=== PATIENT | male | born 1985 | race Caucasian/White ===

== ENCOUNTER 2018-05-04 01:42 | Emergency (ER) | payer OTHER ==
[2018-05-04] MEDS ORDERED: NS 1,000 ML IV ONE (01:44)
--- NOTE | 2018-05-04 01:49 | EDPHY ---
H & P Time Seen by Provider: 05/04/18 01:45 HPI/ROS: HPI CHIEF COMPLAINT: Combative agitated behavior, requiring spit mask and 4 point restraints. HISTORY OF PRESENT ILLNESS: 33-year-old male, Eyal Welsh, presents emergency room intoxicated with alcohol and admits to using cocaine. He arrives to the emergency room by EMS in 4 point restraints with a spit mask on. They found him lying on the sidewalk he does have abrasions over his face. The patient does not recall what happened. When EMS made contact him and police he became agitated combative. They had a placement 4 point restraints upon arrival in a spit mask. Upon arrival he is in ER room 6 he will not give us his name however he states he drank a large amount of alcohol this evening and did cocaine. He is out of 4 point restraints, upon arrival. Past Medical History: Unknown medical history Past Surgical History: Unknown surgical history Social History: Drug intoxication, alcohol intoxication cocaine. Family History: Unknown ROS REVIEW OF SYSTEMS: Limited due to intoxication Exam Constitutional intoxicated, smells of alcohol, triage nursing summary reviewed , vital signs reviewed, awake/alert. Eyes normal conjunctivae and sclera, EOMI, PERRLA. HENT head and neck abrasions across the face and nose. Otherwise no signs of acute neck or head trauma. moist mucus membranes, no epistaxis, neck supple/ no meningismus, no raccoon eyes. Respiratory clear to auscultation bilaterally, normal breath sounds, no respiratory distress, no wheezing. Cardiovascular rate normal, regular rhythm, no murmur, no edema, distal pulses normal. Gastrointestinal soft, non-tender, no rebound, no guarding, normal bowel sounds, no distension, no pulsatile mass. Genitourinary no CVA tenderness. Musculoskeletal no midline vertebral tenderness, full range of motion, no calf swelling, no tenderness of extremities, no meningismus, good pulses, neurovascularly intact. Skin abrasions across the face and nose. Neurologic agitated, aggressive, intoxicated. Differential Diagnosis: Includes but is not limited to in a particular order: Drug intoxication, cocaine intoxication, alcohol intoxication, aggressive combative behavior, intracranial bleed, skull fracture, facial fracture, cervical spine fracture. Medical Decision Making: Plan for this patient IV establishment fluid bolus, cardiac technologist, pulse ox, CT scan head and neck for trauma. Check drug screen serum alcohol level and electrolytes. Re-evaluation: CT scan head without contrast and CT cervical spine without contrast negative for acute traumatic injury called to me by Dr. Stratton. Serum alcohol 426 at 2:37 a.m.. cocaine positive on drug screen. 0615: Patient up ambulatory. Clinically sober stable gait. Was positive for cocaine and alcohol level 426. Now 615 in the morning doing much better. Ambulatory to the bathroom no complaints. Plan for discharge to the [facility] Source: Patient, EMS Constitutional: Initial Vital Signs Temperature (C) 36.6 C 05/04/18 01:42 Heart Rate 67 05/04/18 01:42 Respiratory Rate 16 05/04/18 01:42 Blood Pressure 116/95 H 05/04/18 01:42 O2 Sat (%) 92 05/04/18 01:42 O2 Delivery Mode Room Air Allergies/Adverse Reactions: Unable to Assess Allergy (Unverified 05/04/18 02:16) Home Medications: Medication Instructions Recorded Unobtainable 05/04/18 Medical Decision Making - Data Points Laboratory Results: Laboratory Results 05/04/18 01:45 05/04/18 01:45 05/04/18 05/04/18 05/04/18 02:16 01:45 01:45 WBC 12.48 10^3/uL H 10^3/uL (3.80-9.50) RBC 4.24 10^6/uL L 10^6/uL (4.40-6.38) Hgb 14.7 g/dL g/dL (13.7-17.5) Hct 43.8 % % (40.0-51.0) MCV 103.3 fL H fL (81.5-99.8) MCH 34.7 pg H pg (27.9-34.1) MCHC 33.6 g/dL g/dL (32.4-36.7) RDW 12.8 % % (11.5-15.2) Plt Count 258 10^3/uL 10^3/uL (150-400) MPV 8.7 fL fL (8.7-11.7) Neut % (Auto) 50.9 % % (39.3-74.2) Lymph % (Auto) 34.8 % % (15.0-45.0) [place] % (Auto) 10.3 % % (4.5-13.0) Eos % (Auto) 2.8 % % (0.6-7.6) Baso % (Auto) 0.7 % % (0.3-1.7) Nucleat RBC Rel Count 0.0 % % (0.0-0.2) Absolute Neuts (auto) 6.36 10^3/uL 10^3/uL (1.70-6.50) Absolute Lymphs (auto) 4.34 10^3/uL H 10^3/uL (1.00-3.00) Absolute Monos (auto) 1.28 10^3/uL H 10^3/uL (0.30-0.80) Absolute Eos (auto) 0.35 10^3/uL 10^3/uL (0.03-0.40) Absolute Basos (auto) 0.09 10^3/uL 10^3/uL (0.02-0.10) Absolute Nucleated RBC 0.00 10^3/uL 10^3/uL (0-0.01) Immature Gran % 0.5 % % (0.0-1.1) Immature Gran # 0.06 10^3/uL 10^3/uL (0.00-0.10) Sodium 146 mEq/L H mEq/L (135-145) Potassium 4.7 mEq/L mEq/L (3.5-5.2) Chloride 111 mEq/L H mEq/L (97-110) Carbon Dioxide 22 mEq/l mEq/l (22-31) Anion Gap 13 mEq/L mEq/L (6-14) BUN 12 mg/dL mg/dL (7-23) Creatinine 0.7 mg/dL mg/dL (0.7-1.3) Estimated GFR > 60 Glucose 113 mg/dL H mg/dL (70-100) Calcium 9.4 mg/dL mg/dL (8.5-10.4) Urine Opiates Screen NEGATIVE (NEGATIVE) Urine Barbiturates NEGATIVE (NEGATIVE) Ur Phencyclidine Scrn NEGATIVE (NEGATIVE) Ur Amphetamine Screen NEGATIVE (NEGATIVE) U Benzodiazepines Scrn NEGATIVE (NEGATIVE) Urine Cocaine Screen NON-NEGATIVE H (NEGATIVE) U Marijuana (THC) Screen NON-NEGATIVE H (NEGATIVE) Ethyl Alcohol 426 mg/dL H* mg/dL (0-10) Medications Given: Discontinued Medications Sodium Chloride (Ns) 1,000 mls @ 0 mls/hr IV ONCE ONE PRN Reason: Wide Open Stop: 05/04/18 01:45 Last Admin: 05/04/18 01:50 Dose: 1,000 mls Departure - Departure Disposition: Home, Routine, Self-Care Clinical Impression: Alcohol intoxication, Cocaine abuse Condition: Good Instructions: Alcohol Intoxication (ED), Abuse of Alcohol (ED) Referrals: Patient,NotPresent [Primary Care Provider] - As per Instructions
[2018-05-04 02:09] LABS: PLATELET COUNT 258 10^3/uL (150-400)
[2018-05-04] MEDS ORDERED: CHLORDIAZEPOXIDE 25MG PREPK#6 BTL TAKEHOME ONE (06:15)
[2018-05-04 06:51] VITALS: BP 123/76
== END 2018-05-04 06:51 | disposition home or self-care (01) ==
LOC: EDBD 01:42
DX: F10.920 Alcohol use, unspecified with intoxication, uncomplicated (principal); F14.920 Cocaine use, unspecified with intoxication, uncomplicated; Y90.8 Blood alcohol level of 240 mg/100 ml or more
CPT/HCPCS: 80305; G0480

== ENCOUNTER 2018-09-07 12:05 | Emergency (ER) | payer OTHER ==
--- NOTE | 2018-09-07 13:24 | EDPHY ---
H & P Time Seen by Provider: 09/07/18 12:56 HPI/ROS: CHIEF COMPLAINT: Left knee pain HISTORY OF PRESENT ILLNESS: 32-year-old male presents with left knee pain. Upon getting out of bed 3 days ago, he hyperextended his left knee. Mild pain in left knee, but able to do his usual activities including riding his bicycle to work. The pain has gradually increased and was followed by a 2nd hyperextension. He now has difficulty ambulating because of moderate left knee pain. No weakness, numbness or other injury. Smoking Status: Current every day smoker Physical Exam: Alert and oriented, pleasant Extremities: Left knee-normal inspection, no tenderness, no pain with valgus or varus stress, mild pain with anterior drawer test, no joint effusion, joint is stable, patellar tendon intact Skin: Intact, no erythema or ecchymosis Neuro: Motor and sensory intact Vascular: Capillary refill brisk distally. Constitutional: Initial Vital Signs Temperature (C) 36.6 C 09/07/18 12:13 Heart Rate 83 09/07/18 12:13 Respiratory Rate 18 09/07/18 12:13 Blood Pressure 117/76 09/07/18 12:13 O2 Sat (%) 99 09/07/18 12:13 O2 Delivery Mode Room Air Allergies/Adverse Reactions: No Known Allergies Allergy (Unverified 09/07/18 12:12) Home Medications: Medication Instructions Recorded NK [No Known Home Meds] 09/07/18 Medical Decision Making - Diagnostics Imaging Results: Knee X-Ray 09/07/18 12:28 Impression: Negative left knee radiographs. Imaging: I viewed and interpreted images myself ED Course/Re-evaluation: Assess: left knee strain, possible ACL injury, exam unremarkable and Xray negative. RICE, crutches. f/u ortho 5-7 days if not improving Departure - Departure Disposition: Home, Routine, Self-Care Clinical Impression: Strain of left knee Qualifiers: Encounter type: initial encounter Qualified Code(s): S86.912A - Strain of unspecified muscle(s) and tendon(s) at lower leg level, left leg, initial encounter Condition: Good Instructions: Knee Pain (ED) Additional Instructions: Ibuprofen 600 mg every 6-8 hours as needed for pain. Apply ice for 20 min every 1-2 hours. Use crutches to ambulate Referrals: Karine Zhang MD [Medical Doctor] - 3-4 days, if not improved
[2018-09-07 13:34] VITALS: BP 124/80
== END 2018-09-07 13:34 | disposition home or self-care (01) ==
DX: S86.912A Strain of unspecified muscle(s) and tendon(s) at lower leg level, left leg, initial encounter (principal); X50.9XXA Other and unspecified overexertion or strenuous movements or postures, initial encounter; Y93.55 Activity, bike riding